=== PATIENT | female | born 1955 | race Caucasian/White ===

== ENCOUNTER 2018-03-13 08:50 | Day surgery (SDC) | payer OTHER ==
[2018-03-13] MEDS ORDERED: MIDAZOLAM 1 MG/ML 2 ML INJ ×3 (11:34)
[2018-03-13] MEDS ORDERED: FENTAnyl 50 MCG/ML VIAL (11:34)
== END 2018-03-13 15:25 | disposition home or self-care (01) ==
LOC: GIL 08:50
DX: R19.4 Change in bowel habit (principal); K29.60 Other gastritis without bleeding; K64.8 Other hemorrhoids
CPT/HCPCS: 43239; 88305; 88312